=== PATIENT | female | born 1970 ===

== ENCOUNTER 2018-05-03 10:45 | Inpatient (IN) | payer BC ==
[~2018-05-03] VITALS: Ht 175.3 cm; Wt 89.9 kg
[2018-05-03] MEDS ORDERED: GOLYTELY 4,000ML ORAL.SOL PO ONE (17:00)
[2018-05-03] MEDS ORDERED: SULF-169 PO (17:16)
[2018-05-03] MEDS ORDERED: ACET325C5 PO (17:16)
[2018-05-03] MEDS ORDERED: RIVA15TA PO (17:16)
[2018-05-03] MEDS ORDERED: CEPH500T PO (17:16)
[2018-05-03 17:17] VITALS: BP 98/64
[2018-05-03] MEDS: SODIUM CHLORIDE 0.45% 1,000 ML IV SCH (17:33)
[2018-05-03] MEDS ORDERED: HYDROcodone/APAP 5/325 TABLET ONE (17:57)
[2018-05-03 17:59] LABS: ALANINE AMINOTRANSFERASE 17 U/L (12-78); ALBUMIN 3.2 g/dL (3.4-5.0); ANION GAP 6 mmol/L (5-15); CALCIUM 7.5 mg/dL (8.5-10.1); CHLORIDE 110 mmol/L (98-107); CREATININE 0.73 mg/dL (0.55-1.02)
[2018-05-03] MEDS: HYDROcodone/APAP 5/325 TABLET PO PRN (17:59)
[2018-05-03] MEDS ORDERED: ONDANSETRON 2MG/ML, 2ML IVPush PRN (18:00)
[2018-05-03] MEDS ORDERED: morphine SULFATE 10 MG/ML, 1ML IVPush PRN (18:00)
[2018-05-03 18:01] LABS: ALKALINE PHOSPHATASE 78 U/L (45-117); BILIRUBIN,TOTAL 0.2 mg/dL (0.2-1.0); TOTAL PROTEIN 6.2 g/dL (6.4-8.2)
[2018-05-03 18:16] LABS: MD YES; MEAN CORPUSCULAR HEMOGLOBIN 25.7 pg (27.0-34.8); MEAN CORPUSCULAR HGB CONC 32.6 g/dL (32.4-35.8); MEAN PLATELET VOLUME 8.4 fL (7.4-10.4); PLATELET COUNT 270 x10^3/uL (130-400); RED BLOOD COUNT 3.56 x10^6/uL (3.82-5.3); RED CELL DISTRIBUTION WIDTH 21.5 % (9.6-15.2)
[2018-05-03 18:19] LABS: ANISOCYTOSIS 1+; BASOS#(MANUAL) 0.05 x10^3/uL (0-0.1); BASOS% (MANUAL) 1 % (0-1); EOS% (MANUAL) 2 % (1-7); HYPOCHROMIA 1+; LYMPH#(MANUAL) 1.03 x10^3/uL (1-3.4); LYMPHS% (MANUAL) 21 % (22-44); MICROCYTOSIS 1+; MONOS#(MANUAL) 0.29 x10^3/uL (0.3-2.7); MONOS% (MANUAL) 6 % (2-9); OVALOCYTES 1+; POLYCHROMASIA 1+; SEG#(MANUAL) 3.43 x10^3/uL (1.8-6.8); SEGS% (MANUAL) 70 % (42-75)
[2018-05-03 18:21] LABS: <PLATELET ESTIMATE> ADEQUATE; LARGE PLATELETS 1+
[2018-05-03 19:00] VITALS: BP 108/68
[2018-05-03 21:34] LABS: HCG UR SG 1.009 (1.003-1.030)
[2018-05-04] MEDS: HYDROcodone/APAP 5/325 TABLET PO PRN (01:07)
[2018-05-04] MEDS: SODIUM CHLORIDE 0.45% 1,000 ML IV SCH ×3 (03:10→23:26)
[2018-05-04 03:17] VITALS: BP 106/63
[2018-05-04 05:40] LABS: MEAN CORPUSCULAR VOLUME 78.9 fL (80-100); MEAN PLATELET VOLUME 8.1 fL (7.4-10.4); PLATELET COUNT 244 x10^3/uL (130-400); RED BLOOD COUNT 3.27 x10^6/uL (3.82-5.3); RED CELL DISTRIBUTION WIDTH 21.7 % (9.6-15.2)
[2018-05-04 05:41] LABS: CHLORIDE 110 mmol/L (98-107); INTERNATIONAL NORMALIZED RATIO 0.97 (0.93-1.1)
[2018-05-04 05:47] LABS: ALANINE AMINOTRANSFERASE 13 U/L (12-78); ALBUMIN 2.9 g/dL (3.4-5.0); ALKALINE PHOSPHATASE 67 U/L (45-117); ANION GAP 5 mmol/L (5-15); BILIRUBIN,TOTAL 0.3 mg/dL (0.2-1.0); CALCIUM 7.6 mg/dL (8.5-10.1); CREATININE 0.66 mg/dL (0.55-1.02); TOTAL PROTEIN 5.6 g/dL (6.4-8.2)
[2018-05-04 06:13] LABS: MD YES
[2018-05-04 06:15] LABS: <PLATELET ESTIMATE> ADEQUATE; ANISOCYTOSIS 1+; BAND#(MANUAL) 0.04 x10^3/uL; BANDS%(MANUAL) 1 % (0-7); EOS#(MANUAL) 0.12 x10^3/uL (0.0-0.4); EOS% (MANUAL) 3 % (1-7); HYPOCHROMIA 1+; LARGE PLATELETS 1+; LYMPH#(MANUAL) 1.11 x10^3/uL (1-3.4); LYMPHS% (MANUAL) 27 % (22-44); MICROCYTOSIS 1+; MONOS#(MANUAL) 0.29 x10^3/uL (0.3-2.7); MONOS% (MANUAL) 7 % (2-9); OVALOCYTES 1+; POLYCHROMASIA 1+; SEG#(MANUAL) 2.54 x10^3/uL (1.8-6.8); SEGS% (MANUAL) 62 % (42-75)
[2018-05-04 06:57] VITALS: BP 116/73
[2018-05-04] MEDS ORDERED: OxyconTIN ER 10 MG TAB.ER PO STA (12:21)
[2018-05-04] MEDS ORDERED: GABAPENTIN 300 MG CAPSULE PO STA (12:21)
[2018-05-04] MEDS ORDERED: ACETAMINOPHEN 500 MG TABLET PO STA (12:21)
[2018-05-04] MEDS ORDERED: MIDAZOLAM 1 MG/ML, 2ML ONE (12:28)
[2018-05-04] MEDS ORDERED: FENTANYL PF 250 MCG/5ML ONE ×4 (12:28→14:59)
[2018-05-04] MEDS ORDERED: PROPOFOL 10 MG/ML, 20ML ONE (12:29)
[2018-05-04] MEDS ORDERED: SCOPOLAMINE PATCH, 1.5MG PATCH.TD72 TD PRN (12:30)
[2018-05-04] MEDS ORDERED: ALBUMIN HUMAN 5% 500 ML ONE (12:35)
[2018-05-04] MEDS ORDERED: ONDANSETRON 2MG/ML, 2ML IV PRN (13:00)
[2018-05-04] MEDS ORDERED: PROMETHAZINE 12.5 MG SUPP PR PRN (13:00)
[2018-05-04] MEDS ORDERED: LORazepam 2 MG/ML, 1ML IVPush PRN (13:00)
[2018-05-04] MEDS ORDERED: LABETALOL 5MG/ML, 20ML IV PRN (13:00)
[2018-05-04] MEDS ORDERED: PROMETHAZINE 25 MG/ML, 1ML IV PRN (13:00)
[2018-05-04] MEDS ORDERED: MEPERIDINE/PF 25MG/0.5ML IVPush PRN (13:00)
[2018-05-04] MEDS ORDERED: FENTANYL PF 100 MCG/2ML IV PRN (13:00)
[2018-05-04] MEDS ORDERED: HALOPERIDOL 5 MG/ML IV PRN (13:00)
[2018-05-04] MEDS ORDERED: MIDAZOLAM 1 MG/ML, 2ML IV PRN (13:00)
[2018-05-04] MEDS ORDERED: ALBUTEROL SULFATE 2.5 MG/3 ML NPPB PRN (13:00)
[2018-05-04] MEDS ORDERED: OXYcodone 5 MG/5 ML ORAL.SOL UDC PO PRN (13:00)
[2018-05-04] MEDS ORDERED: MORPHINE SULFATE 4 MG/ML, 1ML IVPush PRN (13:00)
[2018-05-04] MEDS ORDERED: hydrALAzine 20 MG/ML, 1ML IV PRN (13:00)
[2018-05-04] MEDS ORDERED: ONDANSETRON ODT 8 MG PO PRN (13:00)
[2018-05-04] MEDS ORDERED: EPHEDRINE 50 MG/ML, 1ML IVPush PRN (13:00)
[2018-05-04] MEDS ORDERED: SUCCINYLCHOLINE 20 MG/ML, 10ML ONE (13:05)
[2018-05-04] MEDS ORDERED: NEOSTIGMINE 1 MG/ML, 10ML ONE (13:05)
[2018-05-04] MEDS ORDERED: ROCURONIUM 10 MG/ML,10ML ONE (13:05)
[2018-05-04] MEDS ORDERED: ONDANSETRON 2MG/ML, 2ML ONE (13:05)
[2018-05-04] MEDS ORDERED: CEFAZOLIN 1,000 MG ONE (13:05)
[2018-05-04] MEDS ORDERED: EPHEDRINE 50 MG/ML, 1ML ONE (13:05)
[2018-05-04] MEDS ORDERED: GLYCOPYRROLATE 0.2MG/1ML, 5ML ONE (13:05)
[2018-05-04] MEDS ORDERED: DEXAMETHASONE 4 MG/ML, 1ML ONE ×2 (13:33)
[2018-05-04] MEDS ORDERED: FENTANYL PF 100 MCG/2ML ONE ×2 (14:06→14:14)
[2018-05-04] MEDS ORDERED: KETOROLAC 30 MG/1 ML ONE (16:14)
[2018-05-04] MEDS ORDERED: HYDROmorphone 2 MG/ML, 1ML ONE (16:28)
[2018-05-04] MEDS: HYDROmorphone 1 MG/ML, 1ML IV PRN ×4 (16:30→16:46)
[2018-05-04] MEDS ORDERED: MEPERIDINE/PF 50 MG/ML ONE (16:40)
[2018-05-04] MEDS ORDERED: KETOROLAC 30 MG/1 ML IVPush ONE (17:00)
[2018-05-04] MEDS ORDERED: FAMOTIDINE 20 MG TABLET PO SCH (18:00)
[2018-05-04 19:45] VITALS: BP 104/67
[2018-05-04] MEDS: POTASSIUM CHLORIDE 20 MEQ in D5%-0.45% NACL 1,000 ML IV SCH (21:21)
[2018-05-04] MEDS: FAMOTIDINE 20 MG/2 ML IVPush SCH (21:21)
[2018-05-04] MEDS: IV KETOROLAC 30 MG/ML, 1ML IV SCH (23:07)
[2018-05-05 03:00] VITALS: BP 101/67
[2018-05-05 03:38] VITALS: BP 95/59
[2018-05-05 04:41] LABS: BASOPHILS # (AUTO) 0.03 x10^3/uL (0-0.1); BASOPHILS % (AUTO) 1 % (0-1); EOSINOPHILS % (AUTO) 0 % (1-7); LYMPHOCYTES # (AUTO) 0.39 x10^3/uL (1-3.4); LYMPHOCYTES % (AUTO) 6 % (22-44); MD NO; MEAN CORPUSCULAR HGB CONC 33.3 g/dL (32.4-35.8); MEAN CORPUSCULAR VOLUME 81.2 fL (80-100); MEAN PLATELET VOLUME 8.5 fL (7.4-10.4); MONOCYTES # (AUTO) 0.43 x10^3/uL (0.2-0.8); MONOCYTES % (AUTO) 7 % (2-9); NEUTROPHILS # (AUTO) 5.41 x10^3/uL (1.8-6.8); NEUTROPHILS % (AUTO) 86 % (42-75); PLATELET COUNT 257 x10^3/uL (130-400); RED BLOOD COUNT 3.73 x10^6/uL (3.82-5.3); RED CELL DISTRIBUTION WIDTH 19.9 % (9.6-15.2)
[2018-05-05 04:49] LABS: ALBUMIN 2.6 g/dL (3.4-5.0); ANION GAP 4 mmol/L (5-15); CALCIUM 7.2 mg/dL (8.5-10.1); CHLORIDE 110 mmol/L (98-107); CREATININE 0.68 mg/dL (0.55-1.02)
[2018-05-05] MEDS: IV KETOROLAC 30 MG/ML, 1ML IV SCH ×3 (05:01→18:38)
[2018-05-05] MEDS: POTASSIUM CHLORIDE 20 MEQ in D5%-0.45% NACL 1,000 ML IV SCH (05:01)
[2018-05-05 07:48] VITALS: BP 93/56
[2018-05-05] MEDS: D5%-0.45% NACL 1,000 ML IV SCH ×2 (09:56→18:43)
[2018-05-05] MEDS: FAMOTIDINE 20 MG/2 ML IVPush SCH ×2 (10:03→22:07)
[2018-05-05 14:03] VITALS: BP 85/52
[2018-05-05] MEDS: ENOXAPARIN 60 MG/0.6 ML SQ SCH (15:01)
[2018-05-05 19:26] VITALS: BP 95/59
[2018-05-06] MEDS: IV KETOROLAC 30 MG/ML, 1ML IV SCH ×5 (00:09→23:56)
[2018-05-06 02:41] VITALS: BP 105/58
[2018-05-06] MEDS: D5%-0.45% NACL 1,000 ML IV SCH ×3 (02:47→16:47)
[2018-05-06] MEDS: ENOXAPARIN 60 MG/0.6 ML SQ SCH ×2 (03:03→16:47)
[2018-05-06 06:31] LABS: BASOPHILS # (AUTO) 0.02 x10^3/uL (0-0.1); BASOPHILS % (AUTO) 1 % (0-1); EOSINOPHILS # (AUTO) 0.21 x10^3/uL (0-0.4); EOSINOPHILS % (AUTO) 5 % (1-7); LYMPHOCYTES # (AUTO) 0.83 x10^3/uL (1-3.4); LYMPHOCYTES % (AUTO) 20 % (22-44); MD NO; MEAN CORPUSCULAR HEMOGLOBIN 27.3 pg (27.0-34.8); MEAN CORPUSCULAR VOLUME 82.8 fL (80-100); MEAN PLATELET VOLUME 8.3 fL (7.4-10.4); MONOCYTES # (AUTO) 0.32 x10^3/uL (0.2-0.8); MONOCYTES % (AUTO) 8 % (2-9); NEUTROPHILS # (AUTO) 2.73 x10^3/uL (1.8-6.8); NEUTROPHILS % (AUTO) 66 % (42-75); PLATELET COUNT 216 x10^3/uL (130-400); RED BLOOD COUNT 3.17 x10^6/uL (3.82-5.3); RED CELL DISTRIBUTION WIDTH 20.3 % (9.6-15.2)
[2018-05-06 06:46] VITALS: BP 94/60
[2018-05-06] MEDS: FAMOTIDINE 20 MG/2 ML IVPush SCH ×2 (09:35→20:12)
[2018-05-06] MEDS: HYDROcodone/APAP 5/325 TABLET PO PRN ×3 (12:37→21:07)
[2018-05-06 13:06] VITALS: BP_SYST 75; BP_SYST 92; BP_DIAS 42; BP_DIAS 53
[2018-05-06 21:00] VITALS: BP 104/77
[2018-05-07 01:47] VITALS: BP 98/72
[2018-05-07] MEDS: ENOXAPARIN 60 MG/0.6 ML SQ SCH (04:36)
[2018-05-07] MEDS: IV KETOROLAC 30 MG/ML, 1ML IV SCH (06:13)
[2018-05-07 07:35] VITALS: BP 119/77
[2018-05-07] MEDS ORDERED: ONDA4TAB7 PO (09:05)
[2018-05-07] MEDS ORDERED: OXYC-306 PO (09:05)
[2018-05-07] MEDS: FAMOTIDINE 20 MG/2 ML IVPush SCH (09:13)
[2018-05-07] MEDS ORDERED: WARF2.5T PO (10:55)
[2018-05-07] MEDS: HYDROcodone/APAP 5/325 TABLET PO PRN (11:47)
== END 2018-05-07 11:40 | disposition home or self-care (01) | DRG 742 ==
LOC: 3NW 16:53
PROVIDERS: ADMIT Specialist; ATTEND Specialist
PROC: 0UT90ZZ Resection of Uterus, Open Approach (ICD-10-PCS; 2018-05-04)
PROC: 0UB20ZZ Excision of Bilateral Ovaries, Open Approach (ICD-10-PCS; 2018-05-04)
PROC: 0UB70ZZ Excision of Bilateral Fallopian Tubes, Open Approach (ICD-10-PCS; 2018-05-04)
PROC: 07BC0ZZ Excision of Pelvis Lymphatic, Open Approach (ICD-10-PCS; 2018-05-04)
PROC: 0DBU0ZZ Excision of Omentum, Open Approach (ICD-10-PCS; 2018-05-04)
PROC: 07BD0ZZ Excision of Aortic Lymphatic, Open Approach (ICD-10-PCS; 2018-05-04)
PROC: 0BBT0ZX Excision of Diaphragm, Open Approach, Diagnostic (ICD-10-PCS; 2018-05-04)
PROC: 0UBF0ZX Excision of Cul-de-sac, Open Approach, Diagnostic (ICD-10-PCS; 2018-05-04)
PROC: 0DBW0ZX Excision of Peritoneum, Open Approach, Diagnostic (ICD-10-PCS; 2018-05-04)
PROC: 0TBB0ZX Excision of Bladder, Open Approach, Diagnostic (ICD-10-PCS; 2018-05-04)
PROC: 30233N1 Transfusion of Nonautologous Red Blood Cells into Peripheral Vein, Percutaneous Approach (ICD-10-PCS; principal; 2018-05-04 12:00)
DX: D25.9 Leiomyoma of uterus, unspecified (principal); R18.8 Other ascites; N83.9 Noninflammatory disorder of ovary, fallopian tube and broad ligament, unspecified; D64.9 Anemia, unspecified; Z80.49 Family history of malignant neoplasm of other genital organs; Z87.891 Personal history of nicotine dependence
CPT/HCPCS: 36415; J3490; S0028; 71045; 80047; 80048; 80053; 81025; 82040; 85025; 85610; 85730; 86850; 86900; 86923; 88304; 88305; 88307; 88331; 93005; G0378; J0690; J1100; J1170; J1650; J1885; J2175; J2250; J2270; J2405; J2704; J2710; J3010; J3480; P9045; C1765; J0330; P9016